=== PATIENT | male | born 1950 | race Hispanic/Latino ===

== ENCOUNTER → 2023-04-27 | Outpatient (CLI) | payer MEDICARE ==
[2023-04-27 16:40] LABS: ALBUMIN 3.5 g/dL (3.5-5.0); BILIRUBIN,TOTAL 0.6 mg/dL (0.2-1.0); POTASSIUM 4.6 mmol/L (3.5-5.1); TOTAL PROTEIN, SERUM 7.4 g/dL (6.0-8.3)
== END | disposition home or self-care (01) ==
LOC: LAB 13:44
PROVIDERS: ATTEND Student in an Organized Health Care Education/Training Program
DX: R07.89 Other chest pain (principal)
CPT/HCPCS: 36415; 80053

== ENCOUNTER → 2023-05-06 | Outpatient (CLI) | payer MEDICARE | END | disposition home or self-care (01) | LOC: SHCH 12:36 → EDUNIT# 13:30 | PROVIDERS: ATTEND Student in an Organized Health Care Education/Training Program | DX: R07.89 Other chest pain (principal) | CPT/HCPCS: 93306 ==

== ENCOUNTER → 2023-05-08 | Outpatient (CLI) | payer MEDICARE ==
[~2023-05-08] MED LIST: IOHEXOL 350 MG/ML 100ML INFUS..BTL IV ONE; METOPROLOL TARTRATE 1 MG/ML 5ML VIAL IV ONE
== END | disposition home or self-care (01) ==
LOC: RAH 07:57 → EDUNIT# 08:00
PROVIDERS: ATTEND Student in an Organized Health Care Education/Training Program
DX: R07.89 Other chest pain (principal)
CPT/HCPCS: 75574; J3490; Q9967

== ENCOUNTER → 2023-05-13 | Outpatient (CLI) | payer MEDICARE | END | disposition home or self-care (01) | LOC: SHCH 15:23 → EDUNIT# 15:30 | PROVIDERS: ATTEND Student in an Organized Health Care Education/Training Program | DX: I73.9 Peripheral vascular disease, unspecified (principal) | CPT/HCPCS: 93925 ==